=== PATIENT | female | born 1995 | race African-American/Black ===

== ENCOUNTER 2016-06-27 16:14 | Inpatient (IN) | payer MEDICAID ==
[~2016-06-27] VITALS: Ht 157.5 cm; Wt 59.0 kg
[2016-06-27 17:05] VITALS: BP 132/66
[2016-06-27 17:37] LABS: BASOPHILS # (AUTO) 0.1 K/uL (0.00-0.22); BASOPHILS % (AUTO) 1.4 % (0.0-2.0); EOSINOPHILS # (AUTO) 0.2 K/uL (0-0.4); EOSINOPHILS % (AUTO) 1.8 % (0.0-4.0); HEMATOCRIT 39.8 % (36-48); HEMOGLOBIN 13.2 g/dL (12.0-16.0); LYMPHOCYTES # (AUTO) 1.2 K/uL (2.5-16.5); LYMPHOCYTES % (AUTO) 12.4 % (20.5-51.1); MEAN CORPUSCULAR HEMOGLOBIN 26 pg (27-31); MEAN CORPUSCULAR HGB CONC 33 g/dL (33-37); MEAN CORPUSCULAR VOLUME 79 fL (80-94); MONOCYTES # (AUTO) 0.6 K/uL (0.8-1.0); MONOCYTES % (AUTO) 5.9 % (1.7-9.3); NEUTROPHILS # (AUTO) 7.7 K/uL (1.8-7.7); NEUTROPHILS % (AUTO) 78.5 % (42.2-75.2); PLATELET COUNT (AUTO) 358 K/uL (140-450); RED BLOOD CELL COUNT(AUTO) 5.03 MIL/uL (4.20-5.40); RED CELL DISTRIBUTION WIDTH 13.1 % (11.6-13.7); WHITE BLOOD COUNT (AUTO) 9.8 K/uL (4.8-10.8)
[2016-06-27 17:44] LABS: APPEARANCE,URINE CLEAR (CLEAR); BILIRUBIN,URINE NEGATIVE (NEGATIVE); BLOOD, URINE NEGATIVE (NEGATIVE); COLOR,URINE YELLOW (YELLOW); LEUKOCYTE ESTERASE ,URINE NEGATIVE (NEGATIVE); NITRITE, URINE NEGATIVE (NEGATIVE); PH,URINE 6.5 (5.0-9.0); PROTEIN,URINE NEGATIVE (NEGATIVE); UGLUCOSE NEGATIVE (NEGATIVE); UROBILINOGEN,URINE 0.2 EU/dL (0.2 - 1)
[2016-06-27 17:49] LABS: BACTERIA,URINE RARE /HPF (None Seen); MUCUS,URINE 1+ /LPF (None Seen); RBC,URINE 0-3 /HPF (0-5); WBC,URINE 0-3 /HPF (0-5)
[2016-06-27 18:05] LABS: ANION GAP 9.7 (8-16); CALCIUM 8.5 mg/dL (8.5-10.1); CARBON DIOXIDE 29.1 mmol/L (21-32); CREATININE 0.9 mg/dL (0.6-1.3); POTASSIUM 3.8 mmol/L (3.5-5.1)
[2016-06-27 18:10] LABS: ALBUMIN 3.5 g/dL (3.4-5.0); TOTAL BILIRUBIN 0.2 mg/dL (0.0-1.0); TOTAL PROTEIN, SERUM 7.4 g/dL (6.4-8.2)
--- NOTE | 2016-06-27 19:08 | NUR ---
PATIENT PRESENTS TO ED WITH BILAT LOWER QUAD ABD PAIN X 1 DAY, WITH A HX OF THE SAME SINCE SHE WAS 11 Y/O . PT STATES SHE HAS HAD N/V/D X 1 DAY . SKIN IS PINK/WARM/DRY; AAOX4 WITH EVEN AND STEADY GAIT; PT DENIES ANY FEVER, CP, SOB, OR COUGH AT THIS TIME; PATIENT STATES PAIN OF 9/10 AT THIS TIME; VSS; PATIENT POSITIONED FOR COMFORT; HOB ELEVATED; BEDRAILS UP X1; BED DOWN.
--- NOTE | 2016-06-27 19:12 | NUR ---
Pt report given to KOB[facility]. Transfer of care at this time.
--- NOTE | 2016-06-27 19:15 | NUR ---
REPORT RECEIVED FROM TYSON CHEEK.
--- NOTE | 2016-06-27 19:56 | NUR ---
PT SLEEPING AT THIS TIME.
--- NOTE | 2016-06-27 20:05 | NUR ---
Dr. barahona evaluating patient at bedside.
[2016-06-27] MEDS ORDERED: KETOROLAC 60 MG/2 ML VIAL IM ONE (20:15)
[2016-06-27] MEDS ORDERED: NACL 0.9% 1,000 ML IV ONE (21:30)
[2016-06-27 21:57] LABS: INR 1.1 (0.8-1.2); PARTIAL THROMBOPLASTIN TIME 27.2 secs (22-35.6); PROTHROMBIN TIME 10.2 secs (10.8-13.4)
[2016-06-27 22:49] VITALS: BP 112/81
--- NOTE | 2016-06-27 22:52 | NUR ---
Patient will be admitted to care of DR SUE. Admited to MED SURG. Will go to room 111B. Belongings list completed. Report to ADIA ELLIOTT.
[2016-06-27] MEDS ORDERED: LORazepam 2 MG/ML VIAL IVP PRN (23:10)
[2016-06-27] MEDS ORDERED: HYDROcodone/APAP 5/325 MG 1 TAB TAB PO PRN (23:10)
[2016-06-27] MEDS ORDERED: ONDANSETRON 4 MG/2 ML VIAL IVP PRN (23:10)
[2016-06-27] MEDS ORDERED: DEXT 5% /NACL 0.9% 1,000 ML IV SCH (23:10)
[2016-06-27] MEDS ORDERED: MORPHINE SULFATE 2 MG/ML SYR IVP PRN (23:10)
[2016-06-27] MEDS ORDERED: ACETAMINOPHEN 325 MG TAB PO PRN (23:10)
--- NOTE | 2016-06-27 23:44 | NUR ---
RECEIVED FROM ER.PLACED ON BED.ORIENTED TO ROOM.BEFORE RN HAS TO CHANCE THE PT.SHE ASKED FOR AMA FORM TO SIGN AND GO HOME.TALKED W/PT.SHE DIDN'T WANT TO STAY.SO SIGNED AMA FORM AND LEFT HOSPITAL AT 2335 W/FAMILY.
--- NOTE | 2016-06-28 00:10 | NUR ---
PAGED DR. Yohan SUE TO REPORT THAT THE PATIENT LEFT. WAITING FOR CALLBACK.
--- NOTE | 2016-06-28 10:57 | NUR ---
CM NOTE INITIAL REVIEW FAXED TO [facility] / FAX# [phone]
--- NOTE | 2016-06-29 12:58 | NUR ---
CM NOTE RETRO REVIEW FAXED TO [facility] / FAX# [phone], ATTN: BRENDA #[phone]
== END 2016-06-27 23:35 | disposition left against medical advice (07) | DRG 532 ==
LOC: MED 16:20 → MTU 21:44
PROVIDERS: ADMIT Preventive Medicine Preventive Medicine/Occupational Environmental Medicine; ATTEND Preventive Medicine Preventive Medicine/Occupational Environmental Medicine
DX: N83.202 Unspecified ovarian cyst, left side (principal); R00.0 Tachycardia, unspecified; Z53.21 Procedure and treatment not carried out due to patient leaving prior to being seen by health care provider
CPT/HCPCS: 36415; 76830; 76856; 80053; 81001; 81025; 83690; 84702; 85025; 85610; 85730; 87040; 96361; 96372; 99285; J1885

== ENCOUNTER 2017-11-14 19:03 | Emergency (ER) | payer MEDICAID ==
[~2017-11-14] VITALS: Ht 160 cm; Wt 68.6 kg
[2017-11-14 19:06] VITALS: BP 144/88
--- NOTE | 2017-11-14 19:11 | NUR ---
Pt assisted back to lobby
--- NOTE | 2017-11-14 21:40 | NUR ---
ASSUMED CARE OF PT AT THIS TIME. C/O YEAST INFECTION X 2 DAYS. AAOX4 WITH EVEN AND STEADY GAIT; PATIENT STATES PAIN OF 0/10 AT THIS TIME; VSS; PATIENT POSITIONED FOR COMFORT; HOB ELEVATED; BEDRAILS UP X2; BED DOWN. ER MD MADE AWARE OF PT STATUS. WILL CONTINUE TO MONITOR.
[2017-11-14 22:05] VITALS: BP 138/84
--- NOTE | 2017-11-14 22:05 | NUR ---
Patient discharged with v/s stable. Written and verbal after care instructions given and explained. Patient alert, oriented and verbalized understanding of instructions. Ambulatory with steady gait. All questions addressed prior to discharge. ID band removed. Patient advised to follow up with PMD. Rx of DIFLUCAN given. Patient educated on indication of medication including possible reaction and side effects. Opportunity to ask questions provided and answered.
== END 2017-11-14 22:05 | disposition home or self-care (01) ==
LOC: MED 19:03
DX: B37.3 Candidiasis of vulva and vagina (principal)
CPT/HCPCS: 99283

== ENCOUNTER 2020-07-11 23:30 | Emergency (ER) | payer MEDICAID ==
[~2020-07-11] VITALS: Ht 157.5 cm; Wt 63.5 kg
[2020-07-11 23:38] VITALS: BP 135/90
--- NOTE | 2020-07-11 23:40 | NUR ---
TO LOBBY A/W BED AMBULATORY
--- NOTE | 2020-07-12 00:10 | NUR ---
PT AMBULATORY TO BED #8. PT PLACED IN GOWN
[2020-07-12 00:24] VITALS: BP 135/90
[2020-07-12] MEDS ORDERED: ACETAMINOPHEN 325 MG TAB PO ONE (00:35)
[2020-07-12] MEDS ORDERED: ACETAMINOPHEN 325 MG TAB ONE (00:36)
--- NOTE | 2020-07-12 01:00 | NUR ---
PT SEEN LEAVING EMERGENCY ROOM IN [facility].
--- NOTE | 2020-07-12 01:18 | NUR ---
CALLED PT'S PERSONAL PHONE WITH NO ANSWER. PATIENT ELOPED FROM FACILITY. DISCHARGE INSTRUCTIONS NOT GIVEN TO PATIENT. DR. AVILA NOTIFIED.
== END 2020-07-12 01:20 | disposition left against medical advice (07) ==
LOC: MED 23:30
DX: R10.2 Pelvic and perineal pain (principal)
CPT/HCPCS: 81025; 99284

== ENCOUNTER 2020-07-31 15:43 | Emergency (ER) | payer MEDICAID ==
[~2020-07-31] VITALS: Ht 157.5 cm; Wt 63.5 kg
[2020-07-31 15:48] VITALS: BP 130/78
[2020-07-31] MEDS ORDERED: ONDANSETRON 4 MG/2 ML VIAL IVP ONE (16:35)
[2020-07-31] MEDS ORDERED: MORPHINE SULFATE 4 MG/ML SYR IVP ONE ×2 (16:35→19:50)
[2020-07-31 16:58] LABS: BASOPHILS # (AUTO) 0.1 K/uL (0.00-0.22); BASOPHILS % (AUTO) 0.8 % (0.0-2.0); EOSINOPHILS # (AUTO) 0.1 K/uL (0-0.4); EOSINOPHILS % (AUTO) 0.9 % (0.0-4.0); HEMATOCRIT 37.5 % (36-48); HEMOGLOBIN 12.4 g/dL (12.0-16.0); LYMPHOCYTES # (AUTO) 1.1 K/uL (2.5-16.5); LYMPHOCYTES % (AUTO) 15.7 % (20.5-51.1); MEAN CORPUSCULAR HEMOGLOBIN 26 pg (27-31); MEAN CORPUSCULAR HGB CONC 33 g/dL (33-37); MEAN CORPUSCULAR VOLUME 77.8 fL (80-94); MONOCYTES # (AUTO) 0.5 K/uL (0.8-1.0); MONOCYTES % (AUTO) 6.5 % (1.7-9.3); NEUTROPHILS # (AUTO) 5.3 K/uL (1.8-7.7); NEUTROPHILS % (AUTO) 76.1 % (42.2-75.2); PLATELET COUNT (AUTO) 404 K/uL (140-450); RED BLOOD CELL COUNT(AUTO) 4.83 MIL/uL (4.20-5.40); RED CELL DISTRIBUTION WIDTH 14.4 % (11.6-13.7)
[2020-07-31 17:10] LABS: ALBUMIN 3.8 g/dL (3.4-5.0); ANION GAP 10.2 (8-16); CARBON DIOXIDE 27.1 mmol/L (21-32); CREATININE 0.9 mg/dL (0.6-1.3); POTASSIUM 3.3 mmol/L (3.5-5.1); TOTAL BILIRUBIN 0.3 mg/dL (0.0-1.0)
[2020-07-31] MEDS ORDERED: AZITHROMYCIN 250 MG TAB PO ONE ×2 (18:00→19:30)
[2020-07-31] MEDS ORDERED: cefTRIAXone 1,000 MG VIAL ONE (18:07)
[2020-07-31] MEDS ORDERED: IBUP-2213 PO (19:56)
[2020-07-31] MEDS ORDERED: DOXY-487 PO (19:56)
[2020-07-31] MEDS ORDERED: ACET-8386 PO (19:56)
[2020-07-31 20:21] VITALS: BP 117/67
== END 2020-07-31 20:15 | disposition home or self-care (01) ==
LOC: MED 15:43
DX: N83.202 Unspecified ovarian cyst, left side (principal); Z11.3 Encounter for screening for infections with a predominantly sexual mode of transmission
CPT/HCPCS: 36415; 74177; 76830; 80053; 81002; 81025; 85025; 96365; 96375; 96376; 99285; J0696; J2270; J2405; Q9967

== ENCOUNTER 2021-02-17 21:06 | Emergency (ER) | payer MEDICAID ==
[~2021-02-17] VITALS: Ht 157.5 cm; Wt 64.0 kg
[~2021-02-17 21:06] MED LIST: ACET-8386 PO; DOXY-487 PO; IBUP-2213 PO
[2021-02-17 21:36] VITALS: BP 126/74
--- NOTE | 2021-02-17 21:43 | NUR ---
patient to the bathroom for urine collection and sent to lobby.
--- NOTE | 2021-02-17 23:57 | NUR ---
PATIENT LEFT WITHOUT BEING SEEN BY DR. LAWSON. NO FURTHER CARE PROVIDED FOR PATIENT.
== END 2021-02-17 23:56 | disposition left against medical advice (07) ==
LOC: MED 21:06
DX: N89.8 Other specified noninflammatory disorders of vagina (principal); Z53.21 Procedure and treatment not carried out due to patient leaving prior to being seen by health care provider

== ENCOUNTER 2021-04-02 18:46 | Emergency (ER) | payer MEDICAID ==
[~2021-04-02] VITALS: Ht 157.5 cm; Wt 64.4 kg
[2021-04-02 19:12] VITALS: BP 122/83
--- NOTE | 2021-04-02 22:11 | NUR ---
patient called in lobby 3x and no answer.
--- NOTE | 2021-04-02 23:55 | NUR ---
PATIENT LEFT WITHOUT BEING SEEN BY DR. LAWSON. NO FURTHER CARE PROVIDED FOR PATIENT.
--- NOTE | 2021-04-02 23:55 | NUR ---
called patient in lobby/tent. no answer. left without being seen by doctor.
== END 2021-04-02 23:55 | disposition left against medical advice (07) ==
LOC: MED 18:46
DX: R10.2 Pelvic and perineal pain (principal); Z53.21 Procedure and treatment not carried out due to patient leaving prior to being seen by health care provider

== ENCOUNTER 2021-06-11 14:22 | Emergency (ER) | payer MEDICAID ==
[~2021-06-11] VITALS: Ht 157.5 cm; Wt 62.8 kg
[2021-06-11 14:42] VITALS: BP 120/90
--- NOTE | 2021-06-11 14:48 | NUR ---
PT AMBULATED TO BED 8
[2021-06-11] MEDS ORDERED: ONDANSETRON 4 MG/2 ML VIAL IVP ONE (16:00)
[2021-06-11] MEDS ORDERED: MORPHINE SULFATE 4 MG/ML SYR IVP ONE (16:00)
[2021-06-11] MEDS ORDERED: KETOROLAC 15 MG/ML VIAL IVP ONE (16:00)
--- NOTE | 2021-06-11 16:20 | NUR ---
PATIENT IS UNABLE TO PROVIDE URINE SAMPLE AT THIS TIME.
[2021-06-11 16:26] LABS: BASOPHILS # (AUTO) 0.1 K/uL (0.00-0.22); BASOPHILS % (AUTO) 0.9 % (0.0-2.0); EOSINOPHILS # (AUTO) 0.1 K/uL (0-0.4); EOSINOPHILS % (AUTO) 1.5 % (0.0-4.0); HEMATOCRIT 36.2 % (36-48); HEMOGLOBIN 11.9 g/dL (12.0-16.0); LYMPHOCYTES # (AUTO) 1.2 K/uL (2.5-16.5); LYMPHOCYTES % (AUTO) 18.9 % (20.5-51.1); MEAN CORPUSCULAR HEMOGLOBIN 25 pg (27-31); MEAN CORPUSCULAR HGB CONC 33 g/dL (33-37); MEAN CORPUSCULAR VOLUME 76.8 fL (80-94); MONOCYTES # (AUTO) 0.4 K/uL (0.8-1.0); MONOCYTES % (AUTO) 5.7 % (1.7-9.3); NEUTROPHILS # (AUTO) 4.8 K/uL (1.8-7.7); PLATELET COUNT (AUTO) 439 K/uL (140-450); RED BLOOD CELL COUNT(AUTO) 4.72 MIL/uL (4.20-5.40); RED CELL DISTRIBUTION WIDTH 13.9 % (11.6-13.7); WHITE BLOOD COUNT (AUTO) 6.5 K/uL (4.8-10.8)
[2021-06-11 16:37] LABS: ANION GAP 13.6 (8-16); CARBON DIOXIDE 25.8 mmol/L (21-32); CREATININE 0.9 mg/dL (0.6-1.3); POTASSIUM 3.4 mmol/L (3.5-5.1)
--- NOTE | 2021-06-11 17:30 | NUR ---
PATIENT PROVIDED URINE SAMPLE AT THIS TIME, HANDED TO HORACE LANDA
[2021-06-11 17:42] LABS: APPEARANCE,URINE CLEAR (CLEAR); BILIRUBIN,URINE NEGATIVE (NEGATIVE); BLOOD, URINE 3+ (NEGATIVE); COLOR,URINE YELLOW (YELLOW); LEUKOCYTE ESTERASE ,URINE NEGATIVE (NEGATIVE); NITRITE, URINE NEGATIVE (NEGATIVE); UGLUCOSE NEGATIVE (NEGATIVE)
[2021-06-11 17:59] LABS: RBC,URINE 80-100 /HPF (0-5); WBC,URINE 0-5 /HPF (0-5)
--- NOTE | 2021-06-11 18:00 | NUR ---
PATIENT TAKEN TO CT VIA MARTI
--- NOTE | 2021-06-11 18:13 | NUR ---
PATIENT BROUGHT BACK FROM CT.
[2021-06-11] MEDS ORDERED: DOXY-487 PO (18:35)
[2021-06-11 19:02] VITALS: BP 123/89
--- NOTE | 2021-06-11 19:02 | NUR ---
Patient discharged with v/s stable. Written and verbal after care instructions ABOUT PELVIC PAIN AND PELVIC INFLAMMATORY DISEASE given and explained. Patient alert, oriented and verbalized understanding of instructions. Ambulatory with steady gait. All questions addressed prior to discharge. ID band removed. Patient advised to follow up with PMD. Rx of DOXYCYCLINE HYCLATE given.
--- NOTE | 2021-06-11 19:03 | NUR ---
The patient's care was reviewed and supervised by Sofia Garg RN.
== END 2021-06-11 19:02 | disposition home or self-care (01) ==
LOC: MED 14:22
DX: N83.209 Unspecified ovarian cyst, unspecified side (principal); N70.11 Chronic salpingitis; N92.1 Excessive and frequent menstruation with irregular cycle; D62 Acute posthemorrhagic anemia; Z79.899 Other long term (current) drug therapy; Z98.890 Other specified postprocedural states
CPT/HCPCS: 36415; 74177; 80048; 81001; 81025; 84702; 85025; 96374; 96375; 99285; J2270; J2405; Q9967; J1885

== ENCOUNTER 2021-09-02 20:20 | Emergency (ER) | payer MEDICAID ==
[~2021-09-02] VITALS: Ht 160 cm; Wt 65.8 kg
[2021-09-02 20:22] VITALS: BP 140/80
--- NOTE | 2021-09-02 20:52 | NUR ---
PT TAKEN TO BED 12 WITH CAREGIVER.
--- NOTE | 2021-09-02 20:56 | NUR ---
26 yo f bib caregiver with c/c of medication refill xtoday. Per family, patient ran out her routine medications. (Depakote and Seroquel) PMHx: Depression and Bipolar
--- NOTE | 2021-09-02 22:30 | NUR ---
Dr. Valdez examining patient.
--- NOTE | 2021-09-02 23:23 | NUR ---
pt is awake and alert, sitting up in bed. caregiver at bedside. all needs ,met at this time. bed locked in lowest position, side rails x2 for safety
[2021-09-02] MEDS ORDERED: DIVA250E1 PO (23:40)
[2021-09-03] MEDS ORDERED: QUET100T PO (00:06)
[2021-09-03 00:12] VITALS: BP 132/88
--- NOTE | 2021-09-03 00:12 | NUR ---
Patient discharged with v/s stable. Written and verbal after care instructions given and explained. Patient alert, oriented and verbalized understanding of instructions. Ambulatory with by caregiver. All questions addressed prior to discharge. ID band removed. Patient advised to follow up with PMD. Rx of depakote and serquel given. Patient educated on indication of medication including possible reaction and side effects. Opportunity to ask questions provided and answered.
== END 2021-09-03 00:12 | disposition home or self-care (01) ==
LOC: MED 20:20
DX: F31.9 Bipolar disorder, unspecified (principal); F41.9 Anxiety disorder, unspecified; Z76.0 Encounter for issue of repeat prescription
CPT/HCPCS: 99281

== ENCOUNTER 2021-12-13 07:18 | Emergency (ER) | payer MEDICAID ==
[~2021-12-13] VITALS: Ht 157.5 cm; Wt 71.7 kg
[~2021-12-13 07:18] MED LIST changes: +DIVA250E1 PO; +QUET100T PO
[2021-12-13 07:23] VITALS: BP 127/90
--- NOTE | 2021-12-13 07:28 | NUR ---
PT AMBULATED TO BATHROOM WITH STEADY GAIT
--- NOTE | 2021-12-13 07:32 | NUR ---
Dr. Pedro evaluating patient at bedside.
--- NOTE | 2021-12-13 07:43 | NUR ---
26 y/o female bib self with c/o brown vaginal dischargex 4 days. Discharge started after period ended. Patient is also complaining of 8/10 cramping pain to pelvic area. Medical History: Bipolar, Ovarian Cyst, Fibroids NKDA
[2021-12-13] MEDS ORDERED: KETOROLAC 30 MG/ML VIAL IM ONE (08:50)
--- NOTE | 2021-12-13 09:04 | NUR ---
Ultrasound at bedside.
[2021-12-13] MEDS ORDERED: NAPR-1847 PO (10:47)
[2021-12-13 11:04] VITALS: BP 110/73
--- NOTE | 2021-12-13 11:04 | NUR ---
Patient discharged with v/s stable. Written and verbal after care instructions given. Patient alert, oriented and verbalized understanding of instructions. Ambulatory with steady gait. All questions addressed prior to discharge. ID band removed. Patient advised to follow up with PMD. Rx of Naproxen given. Opportunity to ask questions provided and answered.
--- NOTE | 2021-12-13 11:09 | NUR ---
The patient's care was reviewed and supervised by ED Agency Nurse 9, RN, RN.
== END 2021-12-13 11:04 | disposition home or self-care (01) ==
LOC: MED 07:18
DX: D25.9 Leiomyoma of uterus, unspecified (principal)
CPT/HCPCS: 76856; 81002; 81025; 96372; 99284; J1885; Q0092

== ENCOUNTER 2022-04-21 06:50 | Emergency (ER) | payer MEDICAID ==
[~2022-04-21] VITALS: Ht 157.5 cm; Wt 68.0 kg
[~2022-04-21 06:50] MED LIST changes: -ACET-8386 PO; +ACET-8905 PO; +NAPR-1847 PO
[2022-04-21 06:55] VITALS: BP 103/72
--- NOTE | 2022-04-21 07:06 | NUR ---
PT AMB TO ER BED 05.
[2022-04-21] MEDS ORDERED: LIDO15SO MM (07:21)
[2022-04-21] MEDS ORDERED: AMOX875T3 PO (07:21)
[2022-04-21] MEDS ORDERED: IBUP-2213 PO (07:21)
--- NOTE | 2022-04-21 07:25 | NUR ---
REPORT RECEIVED FROM RAHUL GONZALES. ASSUMED CARE AT THIS TIME
--- NOTE | 2022-04-21 07:25 | NUR ---
REPORT RECEIVED FROM RAHUL GONZALES. ASSUMED CARE AT THIS TIME
--- NOTE | 2022-04-21 07:40 | NUR ---
26YO FEMALE PT C/O SORE THROAT AND L EYE IRRITATION X2DAYS. MOIST NON PRODUCTIVE COUGH PRESENT. THROAT W/ REDDENED SWELLING. L EYE RED W/O DRAINAGE -CHANGE IN VISION. STATES "FLUSHING" EYE WITH WATER W/O RELIEF. CLEAR SHIRA LUNG SOUNDS. DENIES N/V/D, CHEST PAIN, FEVER , CHILLS, SOB OR ANYONE SICK AT HOME. PT AAOX4, HOB POSITIONED PER COMFORT HX:DENIES NKA
[2022-04-21] MEDS ORDERED: KETOROLAC 60 MG/2 ML VIAL IM ONE (07:50)
--- NOTE | 2022-04-21 08:05 | NUR ---
Patient discharged with v/s stable. Written and verbal after care instructions given and explained. Patient alert, oriented and verbalized understanding of instructions. Ambulatory with steady gait. All questions addressed prior to discharge. ID band removed. Patient advised to follow up with PMD. Rx of AMOXICILLIN,IBUPROFEN AND LIDOCAINE HCL given. Opportunity to ask questions provided and answered.
--- NOTE | 2022-04-21 08:19 | NUR ---
The patient's care was reviewed and supervised by [place] [facility], RN.
== END 2022-04-21 08:05 | disposition home or self-care (01) ==
LOC: MED 06:50
DX: J02.9 Acute pharyngitis, unspecified (principal); Z20.822 Contact with and (suspected) exposure to COVID-19
CPT/HCPCS: 81025; 87081; 87426; 87804; 96372; 99283; J1885